=== PATIENT | female | born 1990 | race Hispanic/Latino ===

== ENCOUNTER 2016-10-04 02:42 | Emergency (ER) | payer BC ==
[2016-10-04 02:57] VITALS: RESP 18; TEMP 98.9
--- NOTE | 2016-10-04 03:10 | ED PDOC ---
HPI: Wound Care - HPI Time Seen by Provider: 10/04/16 02:50 Chief Complaint (Nursing): Abnormal Skin Integrity Chief Complaint (Provider): head laceration History Per: Patient History Of Present Illness: 26 y/o female presents with friend for eval of head laceration. Patient is intoxicated, friend states patient was sleeping on the couch in her apartment and she fell in the bathroom and may have hit her head on toilet. Patient's friend states she heard a loud "bang" which woke her up and found patient on bathroom floor with bleeding from back of head. LOC unknown. Patient complaining of headache. Denies vomiting, vision changes, neck/back pain, extremity numbness/weakness. Past Medical History Reviewed: Historical Data, Nursing Documentation, Vital Signs Vital Signs: Last Vital Signs Temp 98.9 F 10/04/16 02:51 Pulse 121 H 10/04/16 02:51 Resp 18 10/04/16 02:51 BP 138/93 H 10/04/16 02:51 Pulse Ox 98 10/04/16 02:51 - Medical History PMH: No Chronic Diseases - Surgical History Surgical History: No Surg Hx - Family History Family History: States: Unknown Family Hx - Allergies Allergies/Adverse Reactions: Allergies Allergy/AdvReac Type Severity Reaction Status Date / Time No Known Allergies Allergy Verified 10/04/16 02:51 Review of Systems ROS Statement: Except As Marked, All Systems Reviewed And Found Negative Neurological: Positive for: Headache (head injury, laceration) Physical Exam - Reviewed Nursing Documentation Reviewed: Yes Vital Signs Reviewed: Yes - Physical Exam Appears: Positive for: Well, Non-toxic, No Acute Distress Head Exam: Negative for: ATRAUMATIC (0.4cm superficial right parietal scalp laceration with surrounding hematoma) Skin: Positive for: Normal Color Eye Exam: Positive for: Normal appearance, EOMI, PERRL Cardiovascular/Chest: Positive for: Regular Rate, Rhythm Respiratory: Positive for: Normal Breath Sounds Gastrointestinal/Abdominal: Positive for: Normal Exam Extremity: Positive for: Normal ROM Neurologic/Psych: Positive for: Alert, Oriented, Other (slurred speech, +AOB) - ECG O2 Sat by Pulse Oximetry: 98 - Progress ED Course And Treament: CT head, CT cspine, Tylenol PO, Boostrix IM EXAM: CT Cervical Spine Without Intravenous Contrast CLINICAL HISTORY: 26 years old, female; Injury or trauma; Fall; Initial encounter; Blunt trauma; Additional info: ETOH fall TECHNIQUE: Axial computed tomography images of the cervical spine without intravenous contrast. This CT exam was performed using one or more of the following dose reduction techniques: automated exposure control, adjustment of the mA and/or kV according to patient size, and/or use of iterative reconstruction technique. Coronal and sagittal reformatted images were created and reviewed. COMPARISON: No relevant prior studies available. FINDINGS: Vertebrae: Unremarkable. No acute fracture. Discs/spinal canal/neural foramina: No acute findings. No spinal canal stenosis. Soft tissues: Unremarkable. Lung apices: Unremarkable as visualized. IMPRESSION: Normal cervical spine CT. EXAM: CT Head Without Intravenous Contrast CLINICAL HISTORY: 26 years old, female; Injury or trauma; Fall; Initial encounter; Bleeding / hemorrhage; Additional info: ETOH, head injury/laceration TECHNIQUE: Axial computed tomography images of the head/brain without intravenous contrast. This CT exam was performed using one or more of the following dose reduction techniques: automated exposure control, adjustment of the mA and/or kV according to patient size, and/or use of iterative reconstruction technique. Coronal and sagittal reformatted images were created and reviewed. COMPARISON: No relevant prior studies available. FINDINGS: Brain: Unremarkable. No hemorrhage. No significant white matter disease. No edema. Ventricles: Unremarkable. No ventriculomegaly. Bones/joints: Unremarkable. No acute fracture. Soft tissues: Right parietal scalp laceration and small hematoma. Sinuses: Unremarkable as visualized. No acute sinusitis. Mastoid air cells: Unremarkable as visualized. No mastoid effusion. IMPRESSION: Right parietal scalp laceration and small hematoma. Procedure: Wound Repair - Time Performed Time Performed: 03:00 - Time Out Time Out: Side verified, Site verified, Patient ID confirmed, Sterile procedures obs. - Consent Obtained Consent obtained: Verbal - Performed by Performed by: Mid-level Provider - Indications Indication(s):: Laceration - Location Location:: Right, Posterior, Scalp Shape:: Linear Dimensions Length cm: 0.4cm Dimensions width cm: 0.2cm Depth:: Epidermis - Debris Debris:: None - Irrigated Irrigated with ml of normal saline: 200mL - Wound repair method Sutures:: # (1 surgical staple) - Muscle repiar layer closed with Muscle repair layer closed with:: Wound well approximated, Abx ointment applied , Dressing applied, Tetanus ordered - Patient tolerated procedure Patient Tolerated Procedure:: Well Disposition - Clinical Impression Clinical Impression: Scalp laceration, Head injury Counseled Patient/Family Regarding: Studies Performed, Diagnosis, Need For Followup - Disposition Disposition: Routine/Home Disposition Time: 04:16 Condition: STABLE Additional Instructions: Staple removal in 8-10 days. Apply neosporin to area daily. Take Tylenol or Ibuprofen as directed, as needed for pain. Return to ED for worsening/concerning symptoms. Instructions: Head Injury (ED), Laceration (ED), Staple Care (ED), Hematoma (ED )
[2016-10-04] MEDS ORDERED: TDAP Vaccine 0.5 mL Syr IM ONE (03:52)
[2016-10-04 04:30] VITALS: BP 110/62; PULSE 99; O2SAT 99
--- NOTE | 2016-10-04 10:03 | CT ---
PROCEDURE: CT HEAD WITHOUT CONTRAST. HISTORY: etoh, head injury/laceration COMPARISON: None available. TECHNIQUE: Axial computed tomography images were obtained through the head/brain without intravenous contrast. Radiation dose: Total exam DLP = 981.22 mGy-cm. This CT exam was performed using one or more of the following dose reduction techniques: Automated exposure control, adjustment of the mA and/or kV according to patient size, and/or use of iterative reconstruction technique. FINDINGS: HEMORRHAGE: No acute parenchymal, subarachnoid nor extra-axial hemorrhage. BRAIN: No mass effect or edema. No atrophy or chronic microvascular ischemic changes. 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 No hydrocephalus. CALVARIUM: No evidence of acute calvarial fractures. A metallic skin closure stephy reducing right posterior superior parietal scalp laceration. . Small subjacent scalp contusion and few bubbles of subcutaneous air subjacent to the metallic skin closure stephy. PARANASAL SINUSES: Unremarkable as visualized. No significant inflammatory changes. MASTOID AIR CELLS: Unremarkable as visualized. No inflammatory changes. OTHER FINDINGS: None. IMPRESSION: No acute intracranial hemorrhage. Status post reduction right posterior superior parietal scalp laceration See for additional details an incidental findings
--- NOTE | 2016-10-04 10:15 | CT ---
PROCEDURE: CT scan cervical spine dated 10/04/2016 HISTORY: Trauma COMPARISON: None available. TECHNIQUE: Axial computed tomography images were obtained of the cervical spine without the use of intravenous contrast. Coronal and sagittal reformatted images were created and reviewed. Radiation dose: Total exam DLP = 396.99 mGy-cm. This CT exam was performed using one or more of the following dose reduction techniques: Automated exposure control, adjustment of the mA and/or kV according to patient size, and/or use of iterative reconstruction technique. FINDINGS: VERTEBRAE: Current study reveals no acute displaced or compression fractures. Vertebral bodies exhibit normal stature. There is minimal reversal of the normal upper cervical lordosis which could be due to patient positioning in the gantry however underlying element of mild muscle spasm may contribute. DISCS/SPINAL CANAL/NEURAL FORAMINA: Disc space heights maintained. There are no disc herniation or significant disc bulges. The overall central bony canal and exit foramina appear adequate. PARASPINAL SOFT TISSUES: Prevertebral and paraspinal soft tissues unremarkable. OTHER FINDINGS: Lung apices are clear. IMPRESSION: No acute fractures. Minor reversal of the normal upper cervical lordosis which could be due to patient positioning gantry however underlying element of muscle spasm may contribute.
== END 2016-10-04 04:20 | disposition home or self-care (01) ==
LOC: H.ER 02:42
DX: S01.01XA Laceration without foreign body of scalp, initial encounter (principal); W19.XXXA Unspecified fall, initial encounter; Y92.002 Bathroom of unspecified non-institutional (private) residence as the place of occurrence of the external cause; F10.129 Alcohol abuse with intoxication, unspecified